=== PATIENT | female | born 1995 | race Caucasian/White ===

== ENCOUNTER 2016-06-11 16:53 | Emergency (ER) | payer BC ==
[~2016-06-11] VITALS: Ht 154.9 cm; Wt 69.4 kg
[2016-06-11 17:01] VITALS: TEMP 37.4; Ht 154.9 cm; Wt 69.4 kg
[2016-06-11] MEDS ORDERED: KETOROLAC TROMETHAMINE 30 MG/ML VIAL IV STA (18:29)
[2016-06-11] MEDS ORDERED: ONDANSETRON INJ 2 MG/ML 2 ML VIAL IV STA (18:29)
[2016-06-11] MEDS ORDERED: SODIUM CHLORIDE 0.9% 1000ML 1,000 ML IV STA (18:29)
--- NOTE | 2016-06-11 18:32 | EMERGENCY ROOM VISIT NOTE ---
History Report prepared by Rosalia: Marycruz Woodard Under the Supervision of: Dr. Maury Echeverria D.O. First contact with patient: 18:25 Chief Complaint: URINARY SYMPTOMS Stated Complaint: BURNING IN OVARIES, HARD TO GO TO BATHROOM History of Present Illness The patient is a 21 year old female who presents to the Emergency Room with complaints of constant worsening pelvic pain that began 4 days prior to arrival. She describes the pain as a burning sensation. The patient states that she has been experiencing this pain intermittently for the past few months, about 3 times, and the pain would go away during her menstrual cycle. She notes that she has been experiencing trouble urinating and states it is difficult. She also notes lower back pain. The patient denies vaginal bleeding or discharge , burning with urination, rash, or previous . She has taken Tylenol, Ibuprofen and Midol with no change in symptoms. Her LNMP was May 14, 2016. Source of History: patient Onset: 4 days DIRECTOR OF NURSING Position: pelvis Quality: burning Timing: constant, worsening Associated Symptoms: No rash Note: The patient denies vaginal bleeding or discharge, burning with urination, or previous . Review of Systems See HPI for pertinent positives & negatives. A total of 10 systems reviewed and were otherwise negative. Past Medical & Surgical Medical Problems: (1) No Known Active Medical Problems Family History Patient reports no known family medical history. Social History Smoking Status: Never Smoker Smokeless Tobacco Use: No Marital Status: single Occupation Status: employed Current/Historical Medications No Active Prescriptions or Reported Meds Allergies Coded Allergies: No Known Allergies (Unverified , 06/11/16) Physical Exam Vital Signs Date Time Temp Pulse Resp B/P Pulse Ox O2 Delivery O2 Flow Rate FiO2 06/11/16 22:25 103 18 131/76 98 06/11/16 21:13 89 18 131/69 98 Room Air 06/11/16 19:37 86 18 129/74 98 Room Air 06/11/16 18:49 96 16 127/72 99 Room Air 06/11/16 17:01 37.4 118 18 132/81 99 Room Air Physical Exam GENERAL: Patient is awake, alert, and in no acute distress. Patient is resting comfortably and showing no signs of anxiety EYES: The conjunctivae are clear. The pupils are round and reactive. EARS, NOSE, MOUTH AND THROAT: The nose is without any evidence of any deformity. Mucous membranes are moist tongue is midline NECK: The neck is nontender and supple. RESPIRATORY: Normal respiratory effort is noted there is no evidence of wheezing rhonchi or rales CARDIOVASCULAR: Regular rate and rhythm noted there no murmurs rubs or gallops normal S1 normal S2 GASTROINTESTINAL: The abdomen is soft and nondistended. Bowel sounds are present in all quadrants. Suprapubic tenderness to palpation, no guarding or rigidity appreciated. PELVIC: External genitalia normal. Bimanual reveals long thick cervix. No bleeding. No tenderness to cervix. MUSCULOSKELETAL/EXTREMITIES: There is no evidence of gross deformity full range of motion is noted in the hips and shoulders SKIN: There is no obvious evidence of any rash. There are no petechiae, pallor or cyanosis noted. NEUROLOGIC: Patient is awake alert and oriented x3 Medical Decision & Procedures ER Provider Diagnostic Interpretation: US results as stated below per my review and radiologist interpretation. ULTRASOUND OF THE PELVIS CLINICAL HISTORY: Pelvic pain. Positive hCG test. COMPARISON STUDY: No priors. TECHNIQUE: Real-time, grayscale, and color flow sonography of the pelvis is performed both transabdominally and endovaginally. Images are reviewed in the transverse and longitudinal planes. FINDINGS: Uterus: The uterus is normal in size and echotexture, measuring 6.5 x 3.2 x 4.2 cm. Endometrium: Note uterine gestation is identified. The endometrium is normal in appearance, and the endometrial stripe is top normal in thickness measuring up to 1.1 cm. Ovaries: The ovaries are normal in size and morphology. The right ovary measures 3.4 x 2.2 x 2.4 cm and the left ovary measures 2.6 x 1.3 x 1.9 cm. There is a complex structure identified in the right ovary measuring 2.0 x 1.5 x 2.3 cm. No internal flow seen on color imaging. Normal Doppler waveforms are shown within both ovaries. Pelvis: There is a small volume of simple appearing free fluid in the cul-de-sac. No concerning adnexal lesion is seen. IMPRESSION: 1. 1. No intrauterine gestation is identified. This could simply reflect an intrauterine gestation that is too small to visualize or a missed . Although there is no concerning adnexal lesion identified, in the setting of a positive test without a confirmed intrauterine gestation ectopic would be impossible to exclude. Close clinical, laboratory, and sonographic follow-up is recommended. 2. There is a 2.3 cm complex nonvascular structure identified in the right ovary. This is indeterminant and likely represents a corpus luteum if the patient is . 3. There is a small volume of free fluid in the cul-de-sac. 4. The uterus and left ovary are normal in appearance. Electronically signed by: Felix Cam M.D. 06/11/2016 9:53 PM Dictated Date/Time: 06/11/2016 9:48 PM ULTRASOUND OF THE PELVIS CLINICAL HISTORY: Pelvic pain. Positive hCG test. COMPARISON STUDY: No priors. TECHNIQUE: Real-time, grayscale, and color flow sonography of the pelvis is performed both transabdominally and endovaginally. Images are reviewed in the transverse and longitudinal planes. FINDINGS: Uterus: The uterus is normal in size and echotexture, measuring 6.5 x 3.2 x 4.2 cm. Endometrium: Note uterine gestation is identified. The endometrium is normal in appearance, and the endometrial stripe is top normal in thickness measuring up to 1.1 cm. Ovaries: The ovaries are normal in size and morphology. The right ovary measures 3.4 x 2.2 x 2.4 cm and the left ovary measures 2.6 x 1.3 x 1.9 cm. There is a complex structure identified in the right ovary measuring 2.0 x 1.5 x 2.3 cm. No internal flow seen on color imaging. Normal Doppler waveforms are shown within both ovaries. Pelvis: There is a small volume of simple appearing free fluid in the cul-de-sac. No concerning adnexal lesion is seen. IMPRESSION: 1. 1. No intrauterine gestation is identified. This could simply reflect an intrauterine gestation that is too small to visualize or a missed . Although there is no concerning adnexal lesion identified, in the setting of a positive test without a confirmed intrauterine gestation ectopic would be impossible to exclude. Close clinical, laboratory, and sonographic follow-up is recommended. 2. There is a 2.3 cm complex nonvascular structure identified in the right ovary. This is indeterminant and likely represents a corpus luteum if the patient is . 3. There is a small volume of free fluid in the cul-de-sac. 4. The uterus and left ovary are normal in appearance. Electronically signed by: Felix Cam M.D. 06/11/2016 9:53 PM Dictated Date/Time: 06/11/2016 9:48 PM Laboratory Results 06/11/16 19:30 Red Blood Count 4.95, Mean Corpuscular Volume 83.4, Mean Corpuscular Hemoglobin 28.3, Mean Corpuscular Hemoglobin Concent 33.9, Mean Platelet Volume 11.2, Neutrophils (%) (Auto) 67.4, Lymphocytes (%) (Auto) 21.7, Monocytes (%) (Auto) 9.9, Eosinophils (%) (Auto) 0.6, Basophils (%) (Auto) 0.2, Neutrophils # (Auto) 6.44, Lymphocytes # (Auto) 2.07, Monocytes # (Auto) 0.95, Eosinophils # (Auto) 0.06, Basophils # (Auto) 0.02 06/11/16 19:30 Test 06/11/16 18:48 06/11/16 19:30 Urine Color YELLOW Urine Appearance CLEAR (CLEAR) Urine pH 5.5 (4.5-7.5) Urine Specific [place] 1.020 (1.000-1.030) Urine Protein NEG (NEG) Urine Glucose (UA) NEG (NEG) Urine Ketones TRACE (NEG) Urine Occult Blood NEG (NEG) Urine Nitrite NEG (NEG) Urine Bilirubin NEG (NEG) Urine Urobilinogen NEG (NEG) Urine Leukocyte Esterase NEG (NEG) White Blood Count 9.56 K/uL (4.8-10.8) Red Blood Count 4.95 M/uL (4.2-5.4) Hemoglobin 14.0 g/dL (12.0-16.0) Hematocrit 41.3 % (37-47) Mean Corpuscular Volume 83.4 fL (80-100) Mean Corpuscular Hemoglobin 28.3 pg (25-34) Mean Corpuscular Hemoglobin Concent 33.9 g/dl (32-36) Platelet Count 256 K/uL (130-400) Mean Platelet Volume 11.2 fL (7.4-10.4) Neutrophils (%) (Auto) 67.4 % Lymphocytes (%) (Auto) 21.7 % Monocytes (%) (Auto) 9.9 % Eosinophils (%) (Auto) 0.6 % Basophils (%) (Auto) 0.2 % Neutrophils # (Auto) 6.44 K/uL (1.4-6.5) Lymphocytes # (Auto) 2.07 K/uL (1.2-3.4) Monocytes # (Auto) 0.95 K/uL (0.11-0.59) Eosinophils # (Auto) 0.06 K/uL (0-0.5) Basophils # (Auto) 0.02 K/uL (0-0.2) RDW Standard Deviation 39.1 fL (36.4-46.3) RDW Coefficient of Variation 13.0 % (11.5-14.5) Immature Granulocyte % (Auto) 0.2 % Immature Granulocyte # (Auto) 0.02 K/uL (0.00-0.02) Anion Gap 13.0 mmol/L (3-11) Est Creatinine Clear Calc Drug Dose 90.1 ml/min Estimated GFR () 108.9 Estimated GFR (Non- 93.9 BUN/Creatinine Ratio 7.8 (10-20) Calcium Level 9.5 mg/dl (8.5-10.1) Total Bilirubin 0.3 mg/dl (0.2-1) Direct Bilirubin < 0.1 mg/dl (0-0.2) Aspartate Amino Transf (AST/SGOT) 13 U/L (15-37) Alanine Aminotransferase (ALT/SGPT) 20 U/L (12-78) Alkaline Phosphatase 88 U/L (45-117) Total Protein 8.2 gm/dl (6.4-8.2) Albumin 3.8 gm/dl (3.4-5.0) Lipase 135 U/L (73-393) Human Chorionic Gonadotropin, Qual POS (NEG) Human Chorionic Gonadotropin, Quant 247 mIU/mL Laboratory results per my review. Medications Administered Medications (Trade) Dose Ordered Sig/Christian Route Start Time Stop Time Status Last Admin Dose Admin Ketorolac Tromethamine 30 mg 30 mg NOW STAT IV 06/11/16 18:29 06/11/16 18:30 DC 06/11/16 19:37 30 MG Sodium Chloride (Nss 1000ml) 1,000 ml @ 999 mls/hr Q1H1M STAT IV 06/11/16 18:29 06/11/16 19:29 DC 06/11/16 19:37 999 MLS/HR Ondansetron HCl (Zofran Inj) 4 mg NOW STAT IV 06/11/16 18:29 1/23/17 18:30 DC 06/11/16 19:37 4 MG ED Course 1825: The patient was evaluated in room B2. A complete history and physical examination were performed. 1828: Zofran Inj 4 mg IV, Sodium Chloride 1,000 ml @ 999 mls/hr IV, Toradol Inj 30 mg IV. 2146: I discussed the result with the patient. 2211: I spoke with Dr. Madonna OREILLY. She recommends a follow up in 48 hours for repeat testing. Return to the ED if signs of ectopic present. 2214: Upon reevaluation, the patient is hemodynamically stable. I discussed the results and treatment plan with her. She verbalized agreement of the treatment plan. She was discharged home. Medical Decision Differential diagnosis: Etiologies such as ectopic , dysfunction uterine bleeding, bleeding dyscrasia, trauma, infection, as well as others were entertained. Nursing notes reviewed. The patient is a 21-year-old female who presented to the emergency department for an evaluation of pelvic pain. The patient started noticing pelvic pain which was moderate. She's had similar episodes in the past she'll last few months. She presented to the emergency department today because of worsening symptoms. She does have a follow-up appointment with her primary [facility] physician's office this Saturday. The patient was found to be in the emergency department. Her white blood cell count was not elevated. Her vital signs were stable and her hemoglobin was stable as well. On physical exam she did not have significant adnexal tenderness. She did not have any vaginal bleeding. I discussed the patient's laboratory radiographic studies with her. Her beta quantitative hCG was well below the discriminatory level and her ultrasound was not diagnostic. I discussed her case with the on-call [facility] physician. They've agreed to see the patient in 48 hours for follow-up and repeat beta hCG testing. The patient was encouraged to rest and avoid any strenuous activity. She was given instructions to watch out for any possible signs of ectopic such as severe pain severe bleeding dizziness and near syncope upon standing or any other worrisome symptoms. If they were to develop she was instructed to return to the emergency Department immediately. She was also encouraged to follow-up with her [facility] physician in 48 hours for repeat testing. Consults Time Called: 2209 Consulting Physician: Dr. Madonna OREILLY Returned Call: [address] Madonna OREILLY. She recommends a follow up in 48 hours for repeat testing. Return to the ED if signs of ectopic present. Impression Primary Impression: Pelvic pain Additional Impressions: Left ovarian cyst ectopic rule out Scribe Attestation The scribe's documentation has been prepared under my direction and personally reviewed by me in its entirety. I confirm that the note above accurately reflects all work, treatment, procedures, and medical decision making performed by me. Departure Information Dispostion Home / Self-Care Prescriptions No Active Prescriptions or Reported Meds Referrals Lance Henley M.D. (PCP) Forms HOME CARE DOCUMENTATION FORM, IMPORTANT VISIT INFORMATION, Work Instructions Patient Instructions ED Miscarriage Manpreet, My [facility] Additional Instructions Follow-up with the [facility] doctor in 48 hours for repeat laboratory testing. Continue using Tylenol as directed for pain. Rest and avoid any strenuous activity. Return to the emergency department immediately if symptoms change worsen or the need arises. Problem Qualifiers Additional Impressions: Weeks of gestation: less than 8 weeks Qualified Codes: Z3A.01 - Less than 8 weeks gestation of
[2016-06-11 19:18] LABS: URINE APPEARANCE CLEAR (CLEAR); URINE BILIRUBIN NEG (NEG); URINE COLOR YELLOW; URINE NITRITE NEG (NEG); URINE PH 5.5 (4.5-7.5); UROBILINOGEN NEG (NEG)
[2016-06-11 19:36] LABS: MANUAL MICROSCOPIC REQUIRED? NO; REVIEW REQ? NO
[2016-06-11 19:50] LABS: BASO % 0.2 %; BASO ABS # 0.02 K/uL (0-0.2); COMPLETE YES; EOS % 0.6 %; HEMATOCRIT 41.3 % (37-47); IG% 0.2 %; LYMPH % 21.7 %; LYMPH ABS # 2.07 K/uL (1.2-3.4); MEAN CELL VOLUME 83.4 fL (80-100); MEAN CORPUSCULAR HEMOGLOBIN 28.3 pg (25-34); MEAN CORPUSCULAR HGB CONC 33.9 g/dl (32-36); MEAN PLATELET VOLUME 11.2 fL (7.4-10.4); MONO % 9.9 %; NEUT % 67.4 %; PLATELET COUNT 256 K/uL (130-400); RED BLOOD COUNT 4.95 M/uL (4.2-5.4); WHITE BLOOD COUNT 9.56 K/uL (4.8-10.8)
[2016-06-11 20:18] LABS: ALT/SGPT 20 U/L (12-78); AST/SGOT 13 U/L (15-37); BLOOD UREA NITROGEN 7 mg/dl (7-18); BUN/CREATININE RATIO 7.8 (10-20); CALCIUM 9.5 mg/dl (8.5-10.1); CARBON DIOXIDE 21 mmol/L (21-32); CHLORIDE 109 mmol/L (98-107); CREATININE 0.88 mg/dl (0.60-1.20); GLUCOSE 99 mg/dl (70-99); POTASSIUM 3.9 mmol/L (3.5-5.1); SODIUM 143 mmol/L (136-145)
[2016-06-11 20:19] LABS: PREG INTERNAL NEGATIVE QC NEG CLEAR BACKGROUND; PREG INTERNAL POSITIVE QC POS CONTROL LINE
[2016-06-11 20:21] LABS: ALKALINE PHOSPHATASE 88 U/L (45-117)
--- NOTE | 2016-06-11 21:55 | DIAGNOSTIC IMAGING REPORT ---
ULTRASOUND OF THE PELVIS CLINICAL HISTORY: Pelvic pain. Positive hCG test. COMPARISON STUDY: No priors. TECHNIQUE: Real-time, grayscale, and color flow sonography of the pelvis is performed both transabdominally and endovaginally. Images are reviewed in the transverse and longitudinal planes. FINDINGS: Uterus: The uterus is normal in size and echotexture, measuring 6.5 x 3.2 x 4.2 cm. Endometrium: Note uterine gestation is identified. The endometrium is normal in appearance, and the endometrial stripe is top normal in thickness measuring up to 1.1 cm. Ovaries: The ovaries are normal in size and morphology. The right ovary measures 3.4 x 2.2 x 2.4 cm and the left ovary measures 2.6 x 1.3 x 1.9 cm. There is a complex structure identified in the right ovary measuring 2.0 x 1.5 x 2.3 cm. No internal flow seen on color imaging. Normal Doppler waveforms are shown within both ovaries. Pelvis: There is a small volume of simple appearing free fluid in the cul-de-sac. No concerning adnexal lesion is seen. IMPRESSION: 1. 1. No intrauterine gestation is identified. This could simply reflect an intrauterine gestation that is too small to visualize or a missed . Although there is no concerning adnexal lesion identified, in the setting of a positive test without a confirmed intrauterine gestation ectopic would be impossible to exclude. Close clinical, laboratory, and sonographic follow-up is recommended. 2. There is a 2.3 cm complex nonvascular structure identified in the right ovary. This is indeterminant and likely represents a corpus luteum if the patient is . 3. There is a small volume of free fluid in the cul-de-sac. 4. The uterus and left ovary are normal in appearance. Electronically signed by: Felix Cam M.D. 06/11/2016 9:53 PM Dictated Date/Time: 06/11/2016 9:48 PM
[2016-06-11 22:25] VITALS: BP 131/76; PULSE 103; O2SAT 98
== END 2016-06-11 22:30 | disposition home or self-care (01) ==
LOC: C.EDB 16:54
DX: N83.209 Unspecified ovarian cyst, unspecified side (principal); Z3A.01 Less than 8 weeks gestation of pregnancy

== ENCOUNTER → 2016-06-13 | Outpatient (CLI) | payer BC ==
[2016-06-16 15:46] LABS: CHLAMYDIA TRACH RNA*** NOT DETECTED (NOT DETECTED); GC (NEIS GONORRHOEAE)RNA** NOT DETECTED (NOT DETECTED)
== END | disposition home or self-care (01) ==
LOC: C.LAB1850 10:54
PROVIDERS: ATTEND Obstetrics & Gynecology
DX: R10.9 Unspecified abdominal pain (principal); Z32.01 Encounter for pregnancy test, result positive

== ENCOUNTER → 2016-06-15 | Outpatient (CLI) | payer BC | END | disposition home or self-care (01) | LOC: C.LAB1850 07:02 | PROVIDERS: ATTEND Obstetrics & Gynecology | DX: Z32.01 Encounter for pregnancy test, result positive (principal) ==

== ENCOUNTER → 2016-08-28 | Outpatient (CLI) | payer BC ==
[2016-08-28 09:49] LABS: BASO % 0.2 %; BASO ABS # 0.02 K/uL (0-0.2); COMPLETE YES; IG% 0.6 %; LYMPH % 22.3 %; LYMPH ABS # 2.81 K/uL (1.2-3.4); MEAN CELL VOLUME 81.9 fL (80-100); MEAN CORPUSCULAR HEMOGLOBIN 27.6 pg (25-34); MEAN CORPUSCULAR HGB CONC 33.7 g/dl (32-36); MEAN PLATELET VOLUME 11.5 fL (7.4-10.4); MONO % 8.6 %; NEUT % 67.3 %; PLATELET COUNT 298 K/uL (130-400); RED BLOOD COUNT 4.64 M/uL (4.2-5.4); WHITE BLOOD COUNT 12.62 K/uL (4.8-10.8)
[2016-08-28 09:54] LABS: URINE APPEARANCE CLOUDY (CLEAR); URINE BILIRUBIN NEG (NEG); URINE COLOR YELLOW; URINE NITRITE NEG (NEG); URINE SPECIFIC GRAVITY 1.024 (1.000-1.030); UROBILINOGEN NEG (NEG)
[2016-08-28 09:58] LABS: MANUAL MICROSCOPIC REQUIRED? NO; REVIEW REQ? NO
[2016-08-28 10:20] LABS: BENZODIAZEPINE, URINE NEG (NEG); COCAINE,URINE NEG (NEG); PHENCYCLIDINE, URINE NEG (NEG)
== END | disposition home or self-care (01) ==
LOC: C.LAB1850 06:59
PROVIDERS: ATTEND Registered Nurse
DX: Z32.01 Encounter for pregnancy test, result positive (principal)

== ENCOUNTER 2023-12-02 05:09 | Inpatient (IN) ==
--- NOTE | 2023-11-18 15:07 | Anesthesiology Consultation ---
Date of Service November 18, 2023 Assessment & Plan (1) Encounter for pre-operative examination: - Per business insight and analytics manager on 11/18/23: No known infectious disease contacts, current infectious disease symptoms in past 10 days or COVID positive test result in the past 30 days. Chart Review Chart Review: entry level sales representative initiated History Surgery Operation Date: 12/02/23 07:30 Proposed Procedures p Section (Delivery of Baby Through of Abdominal Incision) - Judit Carcamo MD, FACOG s with Bilateral Tubal Ligation - Judit Carcamo MD, FACOG Height/Weight Height: 5 ft 1 in Weight: 90.265 kg Allergies Allergy/AdvReac Type Severity Reaction Status Date / Time No Known Allergies Allergy Unverified 11/18/23 14:30 Medications Home Medications Medication Instructions Recorded Confirmed Last Taken acetone (urine) test (Ketone Urine #50 ea 09/30/23 11/15/23 Unknown Test strips) blood sugar diagnostic (OneTouch #150 ea 09/30/23 11/15/23 Unknown Verio test strips) blood-glucose meter (OneTouch #1 ea 09/30/23 11/15/23 Unknown Verio Reflect Meter) lancets 33 gauge (OneTouch Delica #150 ea 09/30/23 11/15/23 Unknown Plus Lancet) famotidine 10 mg tablet 10 mg PO USEASDIRECTD PRN Heartburn 11/06/23 11/18/23 10/23/23 vits no.124-ferrous fum 1 tab PO DAILY 11/06/23 11/18/23 11/05/23 27 mg iron-folic acid 800 mcg tablet ( Vitamin) Past Medical History Medical History (Updated 11/18/23 @ 15:03 by Bea Montes PA-C) Anxiety Gestational diabetes History of chicken pox History of COVID-19 (02/2023) no hosp; resolved Hx of blood clots (2019) "ovary area", states was on blood thinner x 3 mos Past Family History Family History Son Multicystic kidney disease shortly after Denies family history of Ovarian cancer Breast cancer Colorectal cancer Past Surgical History Surgical History History of esophagogastroduodenoscopy (EGD) Hx of colonoscopy S/P section x2 S/P wisdom tooth extraction Social History Smoking Status: Former smoker Do You Dip or Chew Tobacco: No Smoking End Date: quit "couple years ago" Hx Alcohol Use: No Hx Substance Use: No substance use type: does not use Lab Results Anesthesia Preop Results Results Anesthesia Widget: WBC 9.79 K/ul (4.8-10.8) 10/24/23 Hgb 12.3 g/dl (12.0-16.0) 10/24/23 Hct 38.4 % (37.0-47.0) 10/24/23 Plt 213 K/uL (130-400) 10/24/23 Na 138 mmol/L (136-145) 10/24/23 K 4.0 mmol/L (3.5-5.1) 10/24/23 Cl 110 mmol/L (98-107) H 10/24/23 CO2 21 mmol/L (21-32) 10/24/23 BUN 6 mg/dl (6-23) 10/24/23 Creat 0.60 mg/dl (0.6-1.2) 10/24/23 Glucose Level 89 mg/dl (70-99(Fasting)) 10/24/23 Urine Color Yellow 10/24/23 Urine Appearance Clear (Clear) 10/24/23 Urine pH 6.5 (4.5-7.5) 10/24/23 Urine Specific [place] 1.025 (1.000-1.030) 10/24/23 Urine Protein Negative (Negative) 10/24/23 Urine Glucose (UA) Negative (Negative) 10/24/23 Urine Ketones 2+ (Negative) H 10/24/23 Urine Blood Negative (Negative) 10/24/23 Urine Nitrite Negative (Negative) 10/24/23 Urine Bilirubin Negative (Negative) 10/24/23 Urine Urobilinogen Negative (Negative) 10/24/23 Urine Leukocyte Esterase 1+ (Negative) H 10/24/23 Urine WBC (Auto) 0-5 /hpf (0-5) 10/24/23 Urine RBC (Auto) 0-2 /hpf (0-2) 10/24/23 Urine Hyaline Casts (Auto) 0-2 /lpf (0-2) 10/24/23 Urine Epithelial Cells (Auto) 11-20 /hpf (0-2) H 10/24/23 Urine Bacteria (Auto) 1+ (None Seen) H 10/24/23 COVID-19 PCR NEGATIVE (Negative) 10/24/23 Testing Electrocardiogram Date: 10/24/23 NSR with sinus arrhythmia, rate 86 bpm Other Testing Chest CTA 10/24/23 1. There is no evidence of pulmonary embolus in the main, lobar, or segmental pulmonary arteries. 2. The lungs are clear.
--- NOTE | 2023-11-29 16:18 | History & Physical Report ---
Date of Service November 29, 2023 Assessment & Plan (1) 39 weeks gestation of : (2) Gestational diabetes mellitus (GDM) affecting , antepartum: (3) Previous delivery affecting , antepartum: (4) Encounter for sterilization: Plan admit on 12/01 for planned c/s and tubal. aware of options for tubal and desires distal salpingectomies. consent reviewed and signed. risks and alternatives and consequences of procedure reviewed. pt desires to proceed. History of Present Illness Chief Complaint: planned c/s and tubal. Primary Care Provider: Loni De DO 28yo at 39+wks ega for planned repeat c/s and tubal ligation. Was having cramps but no timeable ctx. +FM. PNC c/b 1. GDM--last efw 45% 2. Prior c/s x2 3. Desires sterilization. 4. First child multicystic kidney dx- shortly after -->declines genetics consult PNL rh pos, ri, gbs neg. OBH: c/s x 2, demise of as noted above. GYNH: nl paps, no stds. Allergies Allergy/AdvReac Type Severity Reaction Status Date / Time No Known Allergies Allergy Unverified 11/29/23 10:58 Home Medications Medication Instructions Recorded Confirmed Type acetone (urine) test (Ketone Urine #50 ea 09/30/23 11/29/23 Rx Test strips) blood sugar diagnostic (OneTouch #150 ea 09/30/23 11/29/23 Rx Verio test strips) blood-glucose meter (OneTouch #1 ea 09/30/23 11/29/23 Rx Verio Reflect Meter) lancets 33 gauge (OneTouch Delica #150 ea 09/30/23 11/29/23 Rx Plus Lancet) famotidine 10 mg tablet 10 mg PO USEASDIRECTD PRN Heartburn 11/06/23 11/29/23 History vits no.124-ferrous fum 1 tab PO DAILY 11/06/23 11/29/23 History 27 mg iron-folic acid 800 mcg tablet ( Vitamin) Patient History Medical History Anxiety Gestational diabetes History of chicken pox History of COVID-19 (02/2023) no hosp; resolved Hx of blood clots (2019) "ovary area", states was on blood thinner x 3 mos Surgical History History of esophagogastroduodenoscopy (EGD) Hx of colonoscopy S/P section x2 S/P wisdom tooth extraction Family History Son Multicystic kidney disease shortly after Denies family history of Ovarian cancer Breast cancer Colorectal cancer Social History Smoking Status: Former smoker Tobacco Type: Cigarettes Second Hand Exposure: No; Do You Dip or Chew Tobacco: No; Hx Alcohol Use: No Hx Substance Use: No Preferred Language: Frisian Communication Ability: Effective Commissions Analyst Required: No Beliefs That Will Affect Care: None marital status: Single marital status details: amalia Yin ([phone] Current Living Situation: Family and Significant Other current occupational status: employed current occupation: [employer] Feels Safe at Home: Yes Assistive Devices: Contacts and Glasses Review of Systems as per Subjective / HPI Physical Exam Constitutional: WD/WN, vitals as above Respiratory: normal respiratory effort, lungs clear to auscultation Cardiovascular: Rate/Rhythm: regular rate and regular rhythm Gastrointestinal (Abdomen): soft gravid nt Musculoskeletal: tr edema nontender calves Neurologic: grossly normal Psychiatric: A+Ox3, euthymic affect Genitourinary: +FHTs Coding Level of Care Code None Diagnoses 39 weeks gestation of Z3A.39 Gestational diabetes mellitus (GDM) affecting , antepartum O24.419 Previous delivery affecting , antepartum O34.219 Encounter for sterilization Z30.2
[2023-12-02] MEDS: LACTATED RINGER'S 1,000 ML IV SCH ×2 (05:48→22:10)
[2023-12-02 05:52] LABS: Basophils # (auto) 0.02 K/uL (0.00-0.20); Basophils % (auto) 0.2 %; Eosinophils # (auto) 0.17 K/uL (0.00-0.50); Eosinophils % (auto) 1.9 %; Hematocrit (blood only) 36.9 % (37.0-47.0); Hemoglobin 11.5 g/dl (12.0-16.0); Immature Granulocytes # (auto) 0.05 K/uL (0.01-0.20); Immature Granulocytes % (auto) 0.6 %; Lymphocytes # (auto) 2.02 K/uL (1.20-3.40); Lymphocytes % (auto) 22.9 %; Mean Corpuscular Hemoglobin 25.8 pg (25.0-34.0); Mean Corpuscular Hgb Conc 31.2 g/dL (32.0-36.0); Mean Corpuscular Volume 82.7 fL (80.0-100.0); Mean Platelet Volume 13.4 fL (9.4-12.4); Monocytes # (auto) 0.69 K/uL (0.11-0.59); Monocytes % (auto) 7.8 %; Neutrophils # (auto) 5.87 K/uL (1.40-6.50); Neutrophils % (auto) 66.6 %; Platelet Count 167 K/uL (130-400); RDW Coefficient of Variation 15.2 % (11.5-14.5); RDW Standard Deviation 45.3 fL (36.4-46.3); Red Blood Count 4.46 M/uL (4.20-5.40); White Blood Count 8.82 K/ul (4.8-10.8)
[2023-12-02] MEDS ORDERED: SODIUM CHLORIDE 0.9% 250 ML IV PRN (06:10)
[2023-12-02] MEDS: CITRIC ACID/SODIUM CITRATE 15 ML UDC PO SCH (07:15)
--- NOTE | 2023-12-02 07:22 | History & Physical Bridge Note ---
Date of Service December 02, 2023 History & Physical Bridge Note I have examined the patient, reviewed the History & Physical and in the interval since the performance of the History & Physical I have noted the following changes of clinical significance: no changes noted
[2023-12-02] MEDS ORDERED: MoRPHine SULFATE PF 1 MG/ML 10 ML AMP/VIAL ONE (07:26)
[2023-12-02] MEDS ORDERED: fentaNYL citrate PF 100 MCG/2 ML VIAL ONE (07:26)
[2023-12-02] MEDS: ceFAZolin 2,000 MG in SYRINGE 0 ML IV SCH (07:28)
[2023-12-02] MEDS ORDERED: KETOROLAC 30 MG/ML VIAL ONE (08:24)
[2023-12-02] MEDS ORDERED: DEXAMETHASONE SOD INJ 4 MG/ML VIAL ONE (08:24)
[2023-12-02] MEDS ORDERED: OXYTOCIN 10 UNITS/ML VIAL ONE ×3 (08:24→08:37)
[2023-12-02] MEDS ORDERED: ONDANSETRON INJ 2 MG/ML 2 ML VIAL ONE (08:24)
[2023-12-02] MEDS ORDERED: ONDANSETRON INJ 2 MG/ML 2 ML VIAL IV PRN (08:34)
[2023-12-02] MEDS ORDERED: MEPERIDINE HCL 25 MG/ML CARP/VIAL IV PRN (08:34)
[2023-12-02] MEDS ORDERED: METOCLOPRAMIDE HCL 20 MG in SODIUM CHLORIDE 0.9% 50 ML IV PRN (08:34)
[2023-12-02] MEDS ORDERED: DROPERIDOL 5 MG/2 ML VIAL IV PRN (08:34)
[2023-12-02] MEDS ORDERED: LACTATED RINGER'S 500 ML IV PRN (08:34)
[2023-12-02] MEDS ORDERED: NALOXONE HCL 1 MG in SODIUM CHLORIDE 0.9% 1,000 ML IV PRN (08:34)
[2023-12-02] MEDS ORDERED: ePHEDrine sulfate 50 MG/ML AMP IV PRN (08:34)
[2023-12-02] MEDS ORDERED: PROMETHAZINE HCL 6.25 MG in SODIUM CHLORIDE 0.9% 50 ML IV PRN (08:34)
[2023-12-02] MEDS ORDERED: diphenhydrAMINE 50 MG/ML VIAL IV PRN (08:34)
[2023-12-02] MEDS ORDERED: NALBUPHINE HCL 5 MG in SYRINGE 0 ML IV PRN (08:34)
[2023-12-02] MEDS ORDERED: KETOROLAC 30 MG/ML VIAL IV PRN (08:34)
[2023-12-02] MEDS ORDERED: HYDROmorphone INJ 0.5 MG/0.5 ML SYR IV PRN (08:34)
[2023-12-02] MEDS ORDERED: NALOXONE HCL 0.08 MG in SYRINGE 1.8 ML IV PRN (08:34)
[2023-12-02] MEDS ORDERED: NALOXONE HCL 0.4 MG/1 ML VIAL/CARP IV PRN (08:34)
--- NOTE | 2023-12-02 08:43 | Operative Report ---
PG Post Operative Report Pre & Post Diagnosis Operation Date: 12/02/23 07:30 Pre-Op Diagnosis: 1. 39 weeks iup 2. Prior c/s x2 3. Desires sterilization I identified the patient and participated in the time-out.: Yes Procedure Operation Date: 12/02/23 07:30 <No data on this case meets the specified criteria> Repeat Low Transverse Section Bilateral Distal Salpingectomies for Sterilization. Surgeon Judit Carcamo MD, FACOG [employer] Coiling [employer] Aby Estimated Blood Loss 710 (THIS IS QBL) Findings Consistent with Post-Op Diagnosis (viable infant, apgars 9,9. normal uterus, tubes and ovaries bilaterally) Fluids 1000cc Specimens cord blood Drains aguilar Anesthesia Type Spinal Complications none Disposition Accompanied Patient To Recovery: No Disposition: L&D Indications 28yo with prior c/s x 2 for planned repeat c/s at 39wks. She also desires sterilization. Description of Procedure The patient was taken to the operating room and identified. After adequate anesthesia was obtained, she was placed in the supine position with a leftward tilt on the operating table and prepped and draped in the usual sterile fashion. A aguilar catheter had already been placed. The knife was used to create a Pfannensteil skin incision that was carried down to the underlying layer of fascia. The fascia was nicked in the midline and this opening was extended laterally using Luna scissors. Bunny clamps were placed on the superior and inferior aspect of the fascial incision tenting it upward and the underlying rectus muscles were dissected off the overlying fascia both sharply and bluntly using Luna scissors. The rectus muscles were bluntly in the midline. The peritoneal cavity was bluntly entered into. Some adhesions of omentum were taken down. This opening was stretched. The bladder blade was placed. The vesicouterine peritoneum was elevated and opened up into and the bladder flap was created digitally and bladder blade was replaced. The knife was used to create a hysterotomy and this opening was stretched. The operators hand was placed through the hysterotomy and the bladder blade was removed. The head was elevated and flexed and with fundal pressure the head was delivered. The shoulders and body were rapidly delivered. The cord was clamped and cut and the 's mouth and nares were bulb suction. The was handed off to the awaiting pediatricians. Cord blood was obtained. The placenta was manually expressed. The uterus was exteriorized and cleared of all clots and debris. Dilute IV Pitocin was begun. The uterine tone was improving. The hysterotomy was closed in a running interlocking fashion using 0 Vicryl. The hysterotomy was hemostatic. Attention was turned to the fallopian tubes bilaterally which were identified to their fimbriated ends and transected as salpingectomies using cautery/ligasure device. They were sent at specimen. The hysterotomy was reinspected and was hemostatic. The pelvis was suctioned of any blood or fluid. The uterus was returned to the abdomen. The gutters were cleared of all clots and debris. The hysterotomy was reinspected and a bleeding site was noted and sutured with figure of eight suture of 0 vicryl for excellent hemostasis. The fascia was then closed in running fashion using 0 Vicryl. The subcutaneous fat was copiously irrigated and reapproximated using 2-0 chromic. The skin was closed in a subcuticular fashion using 4-0 monocryl. At this point the procedure was terminated. The patient was transferred to the recovery room in stable condition. All sponge, lap and needle counts are correct x2. I attest to the content of the Intraoperative Record and any orders documented therein. Any exceptions are noted below. OB Procedure Charges [id number] Add on Tubal for C/S
[2023-12-02] MEDS ORDERED: NO NARCOTICS OR SEDATIVES SCH (08:45)
[2023-12-02] MEDS ORDERED: DC INTRASPINAL MORPHINE SCH (08:45)
[2023-12-02] MEDS ORDERED: MAGNESIUM HYDROXIDE SUSP 30 ML UDC PO PRN (08:49)
[2023-12-02] MEDS ORDERED: SENNA 8.6 MG TAB PO PRN (08:49)
[2023-12-02] MEDS ORDERED: HYDROCORTISONE ACETATE 25 MG SUPP PR PRN (08:49)
[2023-12-02] MEDS ORDERED: BENZOCAINE 20% SPRY 85 APPLN/85 GM CAN EXT PRN (08:49)
[2023-12-02] MEDS ORDERED: FAMOTIDINE 10 MG TABLET PO PRN (08:49)
--- NOTE | 2023-12-02 09:28 | Anesthesiology Progress Note ---
Date of Service December 02, 2023 Anesthesia Post Procedure Vital Signs Vital Signs: Temp Pulse Resp BP Pulse Ox 12/02/23 09:26 90 107/58 L 12/02/23 09:25 91 H 96 12/02/23 09:24 88 91 12/02/23 09:20 90 95 12/02/23 09:17 20 12/02/23 09:17 85 118/56 L 12/02/23 09:15 96 H 95 12/02/23 09:12 86 90 12/02/23 09:10 92 H 94 12/02/23 09:06 18 12/02/23 09:06 95 H 105/56 L 12/02/23 09:05 87 95 12/02/23 09:00 85 95 12/02/23 08:57 20 12/02/23 08:56 98 H 99/55 L 12/02/23 08:55 86 94 12/02/23 08:53 92 H 94 12/02/23 08:50 95 H 99 12/02/23 08:48 93 H 113/56 L 12/02/23 08:47 90 204/133 H 12/02/23 08:45 107 H 98 12/02/23 07:08 36.7 C 20 12/02/23 06:58 94 H 117/65 12/02/23 05:23 36.4 C L 18 12/02/23 05:22 91 H 125/78 Pain Intensity Abdomen: Pain Intensity: 0 Transfer of Care Handoff Completed per policy Notes Mental Status: alert / awake / arousable Patient Amnestic to Procedure: Yes Nausea / Vomiting: adequately controlled Pain: adequately controlled Airway Patency, RR, SpO2: stable & adequate BP & HR: stable & adequate Hydration State: stable & adequate Neuraxial Anesthesia: was administered and sensory block is resolving Anesthetic Complications: no major complications apparent and Pt Satisfied with anesthetic care
[2023-12-02] MEDS: DIPHTHER/TETAN/PERTUS Vaccine (Tdap, Adol/Adult) 0.5mL IM ONE (12:35)
[2023-12-02] MEDS: SIMETHICONE 80 MG CHEW PO SCH (12:37)
[2023-12-02] MEDS: OXYTOCIN 20 UNITS/LR 1,002 ML IV SCH (16:40)
[2023-12-02] MEDS: DOCUSATE SODIUM 100 MG CAP PO SCH (20:29)
[2023-12-02] MEDS: SODIUM CHLORIDE 0.9% 1,000 ML IV SCH (22:10)
[2023-12-02] MEDS: MoRPHine SULFATE PF 1 MG/ML 10 ML AMP/VIAL INT SPINAL ONE (22:10)
[2023-12-03] MEDS ORDERED: ZOLPIDEM TARTRATE 5 MG TAB PO PRN (02:35)
[2023-12-03] MEDS ORDERED: ONDANSETRON INJ 2 MG/ML 2 ML VIAL IV PRN (02:35)
[2023-12-03] MEDS ORDERED: PROMETHAZINE HCL 25 MG in SODIUM CHLORIDE 0.9% 50 ML IV PRN (02:35)
[2023-12-03] MEDS ORDERED: diphenhydrAMINE Capsule 25 MG CAP PO PRN (02:35)
[2023-12-03] MEDS ORDERED: diphenhydrAMINE 50 MG/ML VIAL IV PRN (02:35)
[2023-12-03] MEDS: IBUPROFEN 600 MG TAB PO PRN (03:31)
[2023-12-03 06:15] LABS: Basophils # (auto) 0.02 K/uL (0.00-0.20); Basophils % (auto) 0.2 %; Eosinophils # (auto) 0.04 K/uL (0.00-0.50); Eosinophils % (auto) 0.5 %; Hematocrit (blood only) 28.4 % (37.0-47.0); Hemoglobin 8.9 g/dl (12.0-16.0); Immature Granulocytes # (auto) 0.04 K/uL (0.01-0.20); Immature Granulocytes % (auto) 0.5 %; Lymphocytes # (auto) 1.72 K/uL (1.20-3.40); Lymphocytes % (auto) 20.5 %; Mean Corpuscular Hemoglobin 25.8 pg (25.0-34.0); Mean Corpuscular Hgb Conc 31.3 g/dL (32.0-36.0); Mean Corpuscular Volume 82.3 fL (80.0-100.0); Mean Platelet Volume 13.1 fL (9.4-12.4); Monocytes # (auto) 0.69 K/uL (0.11-0.59); Monocytes % (auto) 8.2 %; Neutrophils # (auto) 5.87 K/uL (1.40-6.50); Neutrophils % (auto) 70.1 %; Platelet Count 136 K/uL (130-400); RDW Coefficient of Variation 15.4 % (11.5-14.5); RDW Standard Deviation 45.7 fL (36.4-46.3); Red Blood Count 3.45 M/uL (4.20-5.40); White Blood Count 8.38 K/ul (4.8-10.8)
--- NOTE | 2023-12-03 06:27 | Obstetrical Progress Note ---
Date of Service <Darien Mcnulty DO - Last Filed: 12/03/23 08:04> December 03, 2023 Assessment & Plan <Darien Mcnulty DO - Last Filed: 12/03/23 08:04> (1) Encounter for assessment: Patient is POD 1 s/p c/s and doing well - Eating well, voiding well, ambulating well - vitals reviewed and within normal limits - pain well controlled with analgesics - OOB, ambulation, diet progression as tolerated - Blood type: B+, GBS neg, rubella immune - Plan to discharge tomorrow - After discharge, 6 week follow up with OB visit type: exam and care immediately after delivery Qualified Code(s): Z39.0 - Encounter for care and examination of mother immediately after delivery <Judit Carcamo MD, FACOG - Last Filed: 12/03/23 08:15> (1) Encounter for assessment: Subjective <Darien Mcnulty DO - Last Filed: 12/03/23 08:04> 28 yo post-operative day 1 s/p Ambulation: Has not ambulated at this time Voiding: Voss out at 3-4am, has urinated no BM Passing Gas:: Yes Diet Tolerance:: regular diet Lochia:: Small Feeding Type:: bottle feeding and pumping Current Pain Level: 0/10 Resting comfortably this AM in NAD. Denies BARRIOS, CP, SOB, N/V/D, LE pain/swelling. Physical Exam <Darien Mcnulty DO - Last Filed: 12/03/23 08:04> General: patient resting comfortably, NAD, non-toxic in appearance, answers questions appropriately. Skin: warm, dry, intact HEENT: NC/AT, anicteric sclera, conjunctiva without injection, moist mucus membranes. Heart: +S1/S2, regular, no m/r/g Lungs: equal air entry bilaterally, no rales/rhonchi/wheezes Abd: +BS, soft, NT/ND, uterine fundus firm at umbilicus, c/s incision without erythema and healing well Ext: warm, no clubbing/cyanosis or edema, Garcia's neg. Neuro: nonfocal, speech intact, no facial droop, moving all extremities. Results & Data <Darien Mcnulty DO - Last Filed: 12/03/23 08:04> Vital Signs (Past 12 Hours) Vital Signs Temp Pulse Pulse Resp BP Pulse Ox O2 Del Method 12/03/23 03:30 36.8 C 96 H 18 102/67 99 Room Air 12/03/23 02:00 18 98 12/03/23 01:00 20 96 12/02/23 23:30 36.5 C 96 H 18 97/61 L 98 Room Air 12/02/23 23:00 18 97 12/02/23 22:00 20 98 12/02/23 21:00 18 97 12/02/23 19:30 36.8 C 93 H 18 104/68 97 Room Air Supervising Physician <Judit Carcamo MD, FACOG - Last Filed: 12/03/23 08:15> Co-Signing Physician Notes Resident Physician Supervision Note: I was present with Dr. Mcnulty during the history and exam. I discussed the case with the resident and agree with the findings and plan as documented in the note. Any exceptions or clarifications are listed here: pt doing well, has ambul to BR and voided, feels ok. no pain issues. eating. no n/v. breast and bottle feeding. vss. abd soft ff 2 down nt, incision c/d/i. ext nt calves. pod #1 s/p c/s and tubal. ambulate, c/w reg diet, po pain meds, rec scds while in bed or sitting to mitigate risk of dvt. explained to pt. hgb noted today, recheck tomorrow, advised to take pnv + fe daily at home. rh pos, ri. Documented By: Judit Carcamo MD, FACOG Resident Activity Tracking <Darien Mcnulty DO - Last Filed: 12/03/23 08:04> Resident Involvement: Resident Care Provided Care Provided: OB Delivery
[2023-12-03] MEDS: PRENATAL VITAMIN 1 TAB PO SCH (08:16)
[2023-12-03] MEDS: FERROUS SULFATE 325 MG TAB PO SCH (08:16)
[2023-12-03] MEDS: oxyCODONE/ACETAMINOPHEN 5mg/325mg TAB PO PRN (12:23)
[2023-12-03] MEDS: bisacodyL 5 MG TABEC PO SCH (20:02)
--- NOTE | 2023-12-04 05:52 | Obstetrical Progress Note ---
Date of Service <Darien Mcnulty DO - Last Filed: 12/04/23 06:22> December 04, 2023 Assessment & Plan <Darien Mcnulty DO - Last Filed: 12/04/23 06:22> (1) Encounter for assessment: Patient is POD 2 s/p c/s and doing well - Eating well, voiding well, ambulating well - vitals reviewed and within normal limits - pain well controlled with analgesics - OOB, ambulation, diet progression as tolerated - Blood type: B+, GBS neg, rubella immune - Plan to discharge today - After discharge, 6 week follow up with OB visit type: exam and care immediately after delivery Qualified Code(s): Z39.0 - Encounter for care and examination of mother immediately after delivery <Arabella Lindo, - Last Filed: 12/04/23 06:58> (1) Encounter for assessment: Subjective <Darien Mcnulty DO - Last Filed: 12/04/23 06:22> 28 yo post-operative day 2 s/p Ambulation: ambulating normally Voiding: voiding appropriately and feeling gas, no BM Passing Gas:: Yes Diet Tolerance:: regular diet Lochia:: Small Feeding Type:: bottle feeding and pumping Current Pain Level: 2/10 Resting comfortably this AM in NAD. Denies BARRIOS, CP, SOB, N/V/D, LE pain/swelling. Physical Exam <Darien Mcnulty DO - Last Filed: 12/04/23 06:22> General: patient resting comfortably, NAD, non-toxic in appearance, answers questions appropriately. Skin: warm, dry, intact HEENT: NC/AT, anicteric sclera, conjunctiva without injection, moist mucus membranes. Heart: +S1/S2, regular, no m/r/g Lungs: equal air entry bilaterally, no rales/rhonchi/wheezes Abd: +BS, soft, NT/ND, uterine fundus firm at umbilicus, c/s incision minimal erythema and healing well Ext: warm, no clubbing/cyanosis or edema, Garcia's neg. Neuro: nonfocal, speech intact, no facial droop, moving all extremities. Results & Data <Darien Mcnulty DO - Last Filed: 12/04/23 06:22> Vital Signs (Past 12 Hours) Vital Signs Temp Pulse Resp BP O2 Del Method 12/04/23 00:05 36.4 C L 89 14 101/69 Room Air 12/03/23 19:40 36.6 C 86 16 113/74 Room Air Supervising Physician <Arabella Lindo DO - Last Filed: 12/04/23 06:58> Co-Signing Physician Notes Resident Physician Supervision Note: I interviewed and examined the patient. Discussed with Dr. Mcnulty and agree with findings and plan as documented in the note. Any exceptions or clarifications are listed here: POD#2 doing well. Incision CDI. DC instructions reviewed. Rx Percocet #20 tabs to [facility]. Documented By: Arabella Lindo DO Resident Activity Tracking <Darien Mcnulty, - Last Filed: 12/04/23 06:22> Resident Involvement: Resident Care Provided Care Provided: OB Delivery
[2023-12-04 06:06] LABS: Hematocrit (blood only) 29.3 % (37.0-47.0)
== END 2023-12-04 10:57 | disposition home or self-care (01) | DRG 785 ==
LOC: 4S1 05:09 → EDSTATUS 07:30 → 4E2 11:25